=== PATIENT | male | born 1990 | race Caucasian/White ===

== ENCOUNTER 2018-08-22 06:46 | Emergency (ER) | payer OTHER ==
[2018-08-22 06:51] VITALS: BP 118/72; PULSE 62; RESP 16; TEMP 97.8
--- NOTE | 2018-08-22 07:13 | ED ---
General Adult HPI - General Chief complaint: ENT Stated complaint: ENT Time Seen by Provider: 08/22/18 07:07 Source: patient, RN notes reviewed Mode of arrival: ambulatory Limitations: no limitations - History of Present Illness Initial comments: 27-year-old male presented to emergency department for cough and cold like symptoms over the last 2-3 days. Patient states that he feels very ill today and was unable to go to work. Patient states that he has sinus congestion, cough. He states he's noticed that he has been wheezing. He states he has minimal shortness breath denies any chest pain, headache, dizziness. He has tried no [id number] cough and cold medications. Patient states that multiple people at his work are sick with some her symptoms. - Related Data Previous Rx's Medication Instructions Recorded Fluticasone Nasal [place] [Flonase 2 spr EA NOSTRIL DAILY #1 bottle 08/22/18 Nasal [place]] Pseudoephedrine 12Hr [Sudafed 12 120 mg PO Q12H #14 tablet.er 08/22/18 Hour] predniSONE 50 mg PO DAILY #5 tab 08/22/18 Allergies Allergy/AdvReac Type Severity Reaction Status Date / Time erythromycin base Allergy Swelling Verified 08/22/18 06:50 Penicillins Allergy Swelling Verified 08/22/18 06:50 Review of Systems ROS Statement: Those systems with pertinent positive or pertinent negative responses have been documented in the HPI. ROS Other: All systems not noted in ROS Statement are negative. Past Medical History Past Medical History: No Reported History History of Any Multi-Drug Resistant Organisms: None Reported Past Surgical History: Adenoidectomy, Ear Surgery Past Psychological History: No Psychological Hx Reported Smoking Status: Current every day smoker Past Alcohol Use History: None Reported Past Drug Use History: None Reported General Exam Limitations: no limitations General appearance: alert, in no apparent distress Head exam: Present: atraumatic, normocephalic, normal inspection Eye exam: Present: normal appearance, PERRL, EOMI. Absent: scleral icterus, conjunctival injection, periorbital swelling ENT exam: Present: mucous membranes moist, TM's normal bilaterally, normal external ear exam. Absent: normal oropharynx (Mild postnasal drainage) Neck exam: Present: normal inspection, full ROM. Absent: tenderness, meningismus, lymphadenopathy Respiratory exam: Present: wheezes. Absent: normal lung sounds bilaterally, respiratory distress, rales, rhonchi, stridor Cardiovascular Exam: Present: regular rate, normal rhythm, normal heart sounds. Absent: systolic murmur, diastolic murmur, rubs, gallop, clicks Course Vital Signs 08/22/18 06:47 Temperature 97.8 F Pulse Rate 62 Respiratory 16 Rate Blood Pressure 118/72 O2 Sat by Pulse 98 Oximetry Medical Decision Making - Medical Decision Making 27-year-old male presented for cold-like symptoms. Patient has viral URI. Patient has notable mild wheezing consistent with acute bronchitis also related to his smoking. He did discuss smoking sensation. Patient will be placed on prednisone, pseudoephedrine and Flonase. Disposition Clinical Impression: URI (upper respiratory infection), Acute bronchitis Disposition: HOME SELF-CARE Condition: Stable Instructions: Upper Respiratory Infection (ED) Additional Instructions: Please return to the Emergency Department if symptoms worsen or any other concerns. Prescriptions: Fluticasone Nasal [place] [Flonase Nasal [place]] 2 spr EA NOSTRIL DAILY #1 bottle predniSONE 50 mg PO DAILY #5 tab Pseudoephedrine 12Hr [Sudafed 12 Hour] 120 mg PO Q12H #14 tablet.er Is patient prescribed a controlled substance at d/c from ED?: No Referrals: None,Stated [Primary Care Provider] - 1-2 days Time of Disposition: 07:13
== END 2018-08-22 07:25 | disposition home or self-care (01) ==
LOC: EC 06:46
DX: J20.9 Acute bronchitis, unspecified (principal); J06.9 Acute upper respiratory infection, unspecified; F17.200 Nicotine dependence, unspecified, uncomplicated; Z88.0 Allergy status to penicillin; Z88.1 Allergy status to other antibiotic agents; Z90.89 Acquired absence of other organs
CPT/HCPCS: 99284

== ENCOUNTER 2018-08-30 04:07 | Emergency (ER) | payer OTHER ==
[2018-08-30 04:16] VITALS: BP 158/74; PULSE 93; RESP 18; TEMP 97.8
--- NOTE | 2018-08-30 04:41 | XR ---
EXAMINATION TYPE: XR hand complete RT DATE OF EXAM: 08/30/2018 COMPARISON: NONE HISTORY: Pain TECHNIQUE: 3 views FINDINGS: I see no fracture nor dislocation. Joint spaces are normal. Metacarpals are intact. IMPRESSION: Negative right hand exam.
--- NOTE | 2018-08-30 04:55 | ED ---
Upper Extremity HPI - General Chief Complaint: Extremity Injury, Upper Stated Complaint: hand injury Time Seen by Provider: 08/30/18 04:27 Source: patient Mode of arrival: ambulatory Limitations: no limitations - History of Present Illness Initial Comments: This patient is 28-year-old man presenting to have evaluation of his right hand. Patient states that today at work he was having to do some more physical work with his right hand and found that it was stiff and aching. He had an injury about 4 months ago in which a heavy bin, weighing hundreds of pounds slid down tilt table and crushed his right hand against a rail. He states that at that time he had about 4 days of pain and swelling and then was feeling better so he did not seek medical attention. He found when he was using his right hand today that it was stiff and aching. He states that his employer sent him here to make sure that there had not been broken bone that was missed. Patient states that he is right-handed. He has not had other previous injuries or had any previous surgery. MD Complaint: Injury to:: right, hand Onset/Timin -: week(s) Other Extremity Injury: Hand: Right Other Injuries: none Handedness: right Place: work Improves With: none Worsens With: movement of extremity Context: crush Associated Symptoms: denies other symptoms - Related Data Previous Rx's Medication Instructions Recorded Ibuprofen [Motrin] 600 mg PO Q8HR PRN #20 tab 08/30/18 Allergies Allergy/AdvReac Type Severity Reaction Status Date / Time erythromycin base Allergy Swelling Verified 08/30/18 04:16 Penicillins Allergy Swelling Verified 08/30/18 04:16 Review of Systems ROS Statement: Those systems with pertinent positive or pertinent negative responses have been documented in the HPI. ROS Other: All systems not noted in ROS Statement are negative. Constitutional: Denies: fever, weakness Musculoskeletal: Reports: as per HPI, arthralgia Skin: Denies: rash Neurological: Denies: weakness, numbness, paresthesias Past Medical History Past Medical History: No Reported History History of Any Multi-Drug Resistant Organisms: None Reported Past Surgical History: Adenoidectomy, Ear Surgery Past Psychological History: No Psychological Hx Reported Smoking Status: Current every day smoker Past Alcohol Use History: None Reported Past Drug Use History: None Reported General Exam Limitations: no limitations Cardiovascular Exam: Present: other (Radial and ulnar pulses are normal and capillary refill is normal.) Extremities exam: Present: full ROM, normal capillary refill. Absent: tenderness Right Elbow exam: Present: normal inspection, full ROM. Absent: tenderness, swelling Forearm Wrist exam: Present: normal inspection, full ROM. Absent: tenderness, swelling Hand Wrist exam: Present: normal inspection, full ROM. Absent: tenderness, swelling, laceration, ecchymosis, deformity, crepitus Neuro motor exam: Present: wrist extension intact, thumb opposition intact, thumb IP flexion intact, thumb adduction intact, fingers 2-5 abduction intact Neurosensory exam: Present: 2-point discrimination, radial nerve intact, ulnar nerve intact, median nerve intact Vascular: Present: normal capillary refill Neurological exam: Absent: motor sensory deficit Skin exam: Present: warm, dry, intact, normal color Course Vital Signs 08/30/18 04:13 Temperature 97.8 F Pulse Rate 93 Respiratory 18 Rate Blood Pressure 158/74 O2 Sat by Pulse 98 Oximetry Disposition Clinical Impression: Crushing injury of hand Disposition: HOME SELF-CARE Condition: Good Instructions: Hand Sprain (ED) Prescriptions: Ibuprofen [Motrin] 600 mg PO Q8HR PRN #20 tab PRN Reason: Pain Is patient prescribed a controlled substance at d/c from ED?: No Referrals: None,Stated [Primary Care Provider] - 1-2 days
== END 2018-08-30 05:08 | disposition home or self-care (01) ==
LOC: EC 04:07
DX: S67.21XA Crushing injury of right hand, initial encounter (principal); F17.200 Nicotine dependence, unspecified, uncomplicated; Z88.0 Allergy status to penicillin; Z88.1 Allergy status to other antibiotic agents; W20.8XXA Other cause of strike by thrown, projected or falling object, initial encounter; Y92.69 Other specified industrial and construction area as the place of occurrence of the external cause
CPT/HCPCS: 99283